=== PATIENT | female | born 1955 | race African-American/Black ===

== ENCOUNTER 2021-01-23 20:54 | Emergency (ER) | payer OTHER ==
[~2021-01-23] VITALS: Ht 162.6 cm; Wt 74.8 kg
[2021-01-23 20:57] VITALS: BP 158/86
[2021-01-23] MEDS ORDERED: PROMETHAZINE DM 6.25/15MG-5ML ORASYR PO STA (21:47)
[2021-01-23 22:15] LABS: BASOPHILS % (AUTO) 0.7 % (0.0-2.0); EOSINOPHILS % (AUTO) 0.2 % (0.0-4.0); HEMATOCRIT 42.1 % (36-48); HEMOGLOBIN 14.2 g/dL (12.0-16.0); LYMPHOCYTES # (AUTO) 0.4 K/uL (2.5-16.5); LYMPHOCYTES % (AUTO) 6.2 % (20.5-51.1); MEAN CORPUSCULAR HEMOGLOBIN 30 pg (27-31); MEAN CORPUSCULAR HGB CONC 34 g/dL (33-37); MEAN CORPUSCULAR VOLUME 87.9 fL (80-94); MONOCYTES # (AUTO) 0.6 K/uL (0.8-1.0); MONOCYTES % (AUTO) 8.9 % (1.7-9.3); NEUTROPHILS # (AUTO) 5.7 K/uL (1.8-7.7); PLATELET COUNT (AUTO) 208 K/uL (140-450); RED BLOOD CELL COUNT(AUTO) 4.79 MIL/uL (4.20-5.40); RED CELL DISTRIBUTION WIDTH 13.4 % (11.6-13.7); WHITE BLOOD COUNT (AUTO) 6.8 K/uL (4.8-10.8)
[2021-01-23] MEDS ORDERED: PROMETH/CODEINE 6.25-10MG/5ML 5 ML UDC ONE (22:31)
[2021-01-23 22:41] LABS: ANION GAP 11.3 (8-16); CARBON DIOXIDE 26.1 mmol/L (21-32); CREATININE 0.9 mg/dL (0.6-1.3); POTASSIUM 3.4 mmol/L (3.5-5.1); TOTAL BILIRUBIN 0.6 mg/dL (0.0-1.0)
[2021-01-23] MEDS ORDERED: IMO2 PO (23:52)
[2021-01-24 00:10] VITALS: BP 158/86
== END 2021-01-24 00:10 | disposition home or self-care (01) ==
LOC: MED 20:54
DX: R19.7 Diarrhea, unspecified (principal); R11.2 Nausea with vomiting, unspecified; J45.909 Unspecified asthma, uncomplicated
CPT/HCPCS: 36415; 80053; 82150; 83690; 85025; 99283

== ENCOUNTER 2023-07-09 11:06 | Emergency (ER) | payer OTHER ==
[~2023-07-09] VITALS: Ht 162.6 cm; Wt 80.3 kg
[~2023-07-09 11:06] MED LIST: IMO2 PO
[2023-07-09 11:26] VITALS: BP 172/91; PULSE 75; RESP 18; TEMP 99.3; O2SAT 98
[2023-07-09 11:59] LABS: BASOPHILS # (AUTO) 0.1 K/uL (0.00-0.22); BASOPHILS % (AUTO) 1.1 % (0.0-2.0); EOSINOPHILS # (AUTO) 0.1 K/uL (0-0.4); HEMATOCRIT 41.6 % (36-48); HEMOGLOBIN 13.9 g/dL (12.0-16.0); LYMPHOCYTES # (AUTO) 2.2 K/uL (2.5-16.5); LYMPHOCYTES % (AUTO) 34.3 % (20.5-51.1); MEAN CORPUSCULAR HEMOGLOBIN 29 pg (27-31); MEAN CORPUSCULAR HGB CONC 33 g/dL (33-37); MEAN CORPUSCULAR VOLUME 86.8 fL (80-94); MONOCYTES # (AUTO) 0.6 K/uL (0.8-1.0); MONOCYTES % (AUTO) 9.9 % (1.7-9.3); NEUTROPHILS # (AUTO) 3.4 K/uL (1.8-7.7); NEUTROPHILS % (AUTO) 52.7 % (42.2-75.2); PLATELET COUNT (AUTO) 201 K/uL (140-450); RED BLOOD CELL COUNT(AUTO) 4.79 MIL/uL (4.20-5.40); RED CELL DISTRIBUTION WIDTH 13.5 % (11.6-13.7); WHITE BLOOD COUNT (AUTO) 6.4 K/uL (4.8-10.8)
[2023-07-09 12:11] LABS: INR 0.99 (0.8-1.2); PARTIAL THROMBOPLASTIN TIME 26.8 secs (22-35.6); PROTHROMBIN TIME 10.4 secs (10.8-13.4)
[2023-07-09 12:16] LABS: ALANINE AMINOTRANSFERASE 28 U/L (12-78); ALBUMIN 3.7 g/dL (3.4-5.0); ALKALINE PHOSPHATASE 129 U/L (50-136); ANION GAP 10.5 (8-16); ASPARTATE AMINOTRANSFERASE 18 U/L (15-37); CALCIUM 8.7 mg/dL (8.5-10.1); CARBON DIOXIDE 27.3 mmol/L (21-32); CHLORIDE 107 mmol/L (98-107); CREATININE 0.9 mg/dL (0.6-1.3); GFR ARICAN-AMERICAN 80 mL/min (>90); GFR NON ARICAN-AMERICAN 66 mL/min (>90); GLUCOSE 120 mg/dL (74-106); POTASSIUM 3.8 mmol/L (3.5-5.1); SODIUM SERUM 141 mmol/L (136-145); TOTAL BILIRUBIN 0.4 mg/dL (0.0-1.0); TOTAL PROTEIN, SERUM 7.6 g/dL (6.4-8.2); UREA NITROGEN, BLOOD 28 mg/dL (7-18)
[2023-07-09] MEDS ORDERED: diphenhydrAMINE 50 MG/ML VIAL IVP ONE (12:25)
[2023-07-09] MEDS ORDERED: DEXAMETHASONE 10 MG/ML VIAL IVP ONE (12:25)
[2023-07-09] MEDS ORDERED: METOCLOPRAMIDE 10 MG/2 ML INJ VIAL IVP ONE (12:25)
[2023-07-09 12:48] LABS: CHOL/HDL RATIO 2.8 (1-4.5)
[2023-07-09] MEDS ORDERED: ACETAMINOPHEN EXTRA STRENGTH 500 MG TAB PO ONE (13:30)
[2023-07-09] MEDS ORDERED: ASPIRIN 325 MG TAB PO ONE (13:30)
[2023-07-09 13:55] LABS: APPEARANCE,URINE CLEAR (CLEAR)
[2023-07-09 13:56] LABS: COLOR,URINE YELLOW (YELLOW); LEUKOCYTE ESTERASE ,URINE NEGATIVE (NEGATIVE); NITRITE, URINE NEGATIVE (NEGATIVE); PH,URINE 7.5 (5.0-9.0); PROTEIN,URINE NEGATIVE (NEGATIVE); UROBILINOGEN,URINE 0.2 EU/dL (0.2 - 1)
[2023-07-09 13:57] LABS: BILIRUBIN,URINE NEGATIVE (NEGATIVE); BLOOD, URINE NEGATIVE (NEGATIVE); UGLUCOSE NEGATIVE (NEGATIVE)
[2023-07-09 14:12] VITALS: BP 158/86; PULSE 64; RESP 18; TEMP 98; O2SAT 99
== END 2023-07-09 14:14 | disposition short-term general hospital (02) ==
LOC: MED 11:06
DX: Q28.2 Arteriovenous malformation of cerebral vessels (principal); G43.909 Migraine, unspecified, not intractable, without status migrainosus; I16.0 Hypertensive urgency; I21.4 Non-ST elevation (NSTEMI) myocardial infarction; J45.909 Unspecified asthma, uncomplicated; Z79.899 Other long term (current) drug therapy
CPT/HCPCS: 36415; 70450; 70496; 70498; 71045; 80053; 80061; 81003; 82948; 83036; 84484; 85025; 85610; 85730; 86886; 86900; 86901; 93005; 96374; 96375; 99291; J1100; J1200; J2765; Q0092; Q9967

== ENCOUNTER 2023-07-15 15:32 | Emergency (ER) | payer OTHER ==
[~2023-07-15] VITALS: Ht 162.6 cm; Wt 81.0 kg
[2023-07-15 15:42] VITALS: BP 181/82; PULSE 81; RESP 20; TEMP 99.6; O2SAT 99
[2023-07-15] MEDS ORDERED: FAMOTIDINE 20 MG TAB PO ONE (16:55)
[2023-07-15] MEDS ORDERED: predniSONE 20 MG TAB PO ONE (16:55)
[2023-07-15] MEDS ORDERED: FAMOTIDINE 20 MG/2 ML VIAL IVP ONE (17:40)
[2023-07-15] MEDS ORDERED: diphenhydrAMINE 50 MG/ML VIAL IVP ONE (17:40)
[2023-07-15] MEDS ORDERED: FAMO-90 PO (18:21)
[2023-07-15] MEDS ORDERED: DIPH25TA53 PO (18:21)
[2023-07-15 19:21] VITALS: BP 136/73; PULSE 71; RESP 16; TEMP 97; O2SAT 99
== END 2023-07-15 19:23 | disposition home or self-care (01) ==
LOC: MED 15:32
DX: L50.9 Urticaria, unspecified (principal); R21 Rash and other nonspecific skin eruption; J45.909 Unspecified asthma, uncomplicated; I10 Essential (primary) hypertension; Z79.899 Other long term (current) drug therapy
CPT/HCPCS: 99284; J7512; Q0163

== ENCOUNTER 2024-01-14 16:10 | Emergency (ER) | payer MEDICARE, OTHER ==
[~2024-01-14] VITALS: Ht 170.2 cm; Wt 68.0 kg
[~2024-01-14 16:10] MED LIST changes: +DIPH25TA53 PO; +FAMO-90 PO
[2024-01-14 16:25] VITALS: BP 139/67; PULSE 79; RESP 18; TEMP 98.7; O2SAT 100
[2024-01-14] MEDS: TETRACAINE HCL/PF 0.5% OPTH 4 ML BTL OP ONE (16:52)
[2024-01-14] MEDS: FLUORESCEIN OPTH STRIP 1 MG OP ONE (16:53)
[2024-01-14] MEDS ORDERED: OFLOS OP (17:14)
[2024-01-14] MEDS ORDERED: DESL5TAB PO (17:23)
== END 2024-01-14 17:36 | disposition home or self-care (01) ==
LOC: MED 16:10
DX: H10.9 Unspecified conjunctivitis (principal); J45.909 Unspecified asthma, uncomplicated; Z79.899 Other long term (current) drug therapy
CPT/HCPCS: 99283